=== PATIENT | male | born 1930 | race Caucasian/White ===

== ENCOUNTER 2017-03-10 19:31 | Emergency (ER) | payer MEDICARE, BC ==
[2017-03-10 20:02] VITALS: BP 163/103
--- NOTE | 2017-03-10 20:27 | EDM.PDOC ---
ED HPI GENERAL MEDICAL PROBLEM - General Chief Complaint: Genitourinary Problem Stated Complaint: ILLNESS Time Seen by Provider: 03/10/17 20:22 Source of Information: Reports: Patient, Family (spouse) History Limitations: Reports: No Limitations - History of Present Illness INITIAL COMMENTS - FREE TEXT/NARRATIVE: With ongoing bladder issues, saw the urologist today in [place]. He scoped his urethra today and sent him home with a home dilation catheter. Pt reluctant to use it at home. Worried about blood on the 4x4 at home today. Has voided once with small stream about 3 hours ago. Does feel urge to go now. Onset: Today Onset Date: 03/10/17 Duration: Intermittent Quality: Reports: Burning (with urination this evening) Severity: Mild Worsens with: Reports: Other (urination) Associated Symptoms: Reports: No Other Symptoms - Related Data Allergies Allergy/AdvReac Type Severity Reaction Status Date / Time No Known Allergies Allergy Verified 03/10/17 20:02 Home Meds: Home Meds Aspirin 81 mg PO DAILY PRN 11/05/14 [History] Past Medical History HEENT History: Reports: Impaired Vision Genitourinary History: Reports: Other (See Below) Other Genitourinary History: small stream Musculoskeletal History: Reports: Fracture Oncologic (Cancer) History: Reports: Other (See Below) Other Oncologic History: skin Other Dermatologic History: skin cancer on nose - Infectious Disease History Infectious Disease History: Reports: Shingles - Past Surgical History Male Surgical History: Reports: Other (See Below) Other Male Surgeries/Procedures: cystoscopy Musculoskeletal Surgical History: Reports: Hip Replacement, Other (See Below) Other Musculoskeletal Surgeries/Procedures:: laci in femur Social & Family History - Tobacco Use Smoking Status *Q: Never Smoker Second Hand Smoke Exposure: No - Caffeine Use Caffeine Use: Reports: None - Alcohol Use Days Per Week of Alcohol Use: 0 - Recreational Drug Use Recreational Drug Use: No ED ROS GENERAL - Review of Systems Review Of Systems: See Below Constitutional: Reports: No Symptoms HEENT: Reports: No Symptoms Respiratory: Reports: No Symptoms Cardiovascular: Reports: No Symptoms : Reports: Hematuria (noted a small amount) ED EXAM, RENAL/ - Physical Exam Exam: See Below Exam Limited By: No Limitations General Appearance: Alert, WD/WN, No Apparent Distress Head: Atraumatic, Normocephalic Neck: Normal Inspection, Supple, Non-Tender, Full Range of Motion Respiratory/Chest: No Respiratory Distress, Lungs Clear, Normal Breath Sounds, No Accessory Muscle Use, Chest Non-Tender Cardiovascular: Normal Peripheral Pulses, Regular Rate, Rhythm, No Edema, No Gallop, No JVD, No Murmur, No Rub (Male) Exam: Circumcised, Other (dried blood around the tip of the penis) Course - Vital Signs Last Recorded V/S: Last Vital Signs Temp 96.3 F 03/10/17 20:00 Pulse 68 03/10/17 20:00 Resp 18 03/10/17 20:00 BP 163/103 H 03/10/17 20:00 Pulse Ox 99 03/10/17 20:00 - Orders/Labs/Meds Labs: Laboratory Tests 03/10/17 Range/Units 20:39 Urine Color Red Urine Appearance Cloudy Urine pH 5.0 (4.5-8.0) Ur Specific [place] 1.015 (1.008-1.030) Urine Protein 30 H (NEGATIVE) mg/dL Urine Glucose (UA) Normal (NEGATIVE) mg/dL Urine Ketones Negative (NEGATIVE) mg/dL Urine Occult Blood Large (NEGATIVE) Urine Nitrite Negative (NEGAITVE) Urine Bilirubin Small (NEGATIVE) Urine Urobilinogen 1 (NORMAL) mg/dL Ur Leukocyte Esterase Negative (NEGATIVE) Urine RBC Packed H (0-5) Urine WBC 0-5 (0-5) Ur Epithelial Cells Few Amorphous Sediment Not seen Urine Bacteria Rare Urine Mucus Not seen Departure - Departure Time of Disposition: 21:12 Disposition: Home, Self-Care 01 Condition: Good Clinical Impression: Hematuria Qualifiers: Hematuria type: gross Qualified Code(s): R31.0 - Gross hematuria - Discharge Information Referrals: Pipo Valiente MD [Primary Care Provider] - Forms: ED Department Discharge Additional Instructions: Reviewed UA, no sign of infection, only blood due to trauma in office today. Does have 300ml post void residual. Did offer to dilate pt tomorrow with sedation if he would like. Otherwise to contact urology on Monday. - Problem List & Annotations (1) Hematuria SNOMED Code(s): 66746411 Code(s): R31.9 - HEMATURIA, UNSPECIFIED Status: Acute Priority: Medium Current Visit: Yes Qualifiers: Hematuria type: gross Qualified Code(s): R31.0 - Gross hematuria
== END 2017-03-10 21:37 | disposition home or self-care (01) ==
LOC: JP.ED 19:31
DX: R31.0 Gross hematuria (principal); Z85.828 Personal history of other malignant neoplasm of skin; Z96.649 Presence of unspecified artificial hip joint; Z79.82 Long term (current) use of aspirin
CPT/HCPCS: 51798; 81001; 99284; 99284-25